=== PATIENT | male | born 1945 | race Caucasian/White ===

== ENCOUNTER 2024-08-31 17:54 | Emergency (ER) | payer MEDICARE, BC ==
[2024-08-31] MEDS: Succinylcholine 200 MG/10 ML MDV IVPUSH ONE (18:01)
[2024-08-31] MEDS: Etomidate 2 MG/ML 20 ML SDV IVPUSH ONE (18:01)
[2024-08-31] MEDS: Midazolam 1 MG/ML 5 ML SDV IVPUSH ONE (18:16)
[2024-08-31] MEDS: Rocuronium 50 MG/5 ML Vial IVPUSH ONE (18:17)
[2024-08-31 18:19] LABS: BASOPHILS PERCENT AUTO 0.4 % (0.0-1.0); EOSINOPHILS ABSOLUTE AUTO 0.2 K/mm3 (0.0-0.4); EOSINOPHILS PERCENT AUTO 1.7 % (0.0-6.0); HEMOGLOBIN 13.9 gm/dl (14.0-18.0); IMMATURE GRAN ABSOLUTE AUTO 0.05 K/mm3 (0.00-0.05); IMMATURE GRAN PERCENT AUTO 0.5 % (0.0-0.4); LYMPHOCYTES ABSOLUTE AUTO 2.6 K/mm3 (1.0-4.8); LYMPHOCYTES PERCENT AUTO 25.1 % (24.0-44.0); MEAN CORPUSCULAR HEMOGLOBIN 30.4 pg (28.0-32.0); MEAN CORPUSCULAR HGB CONC 30.2 g/dl (32.0-36.0); MEAN CORPUSCULAR VOLUME 100.7 fl (83.0-99.0); MEAN PLATELET VOLUME 10.1 fl (9.4-12.4); MONOCYTES ABSOLUTE AUTO 0.7 K/mm3 (0.0-0.8); MONOCYTES PERCENT AUTO 6.9 % (0.0-8.0); NEUTROPHILS ABSOLUTE AUTO 6.7 K/mm3 (1.8-7.7); NEUTROPHILS PERCENT AUTO 65.4 % (41.0-71.0); PLATELET COUNT,PLT 216 K/mm3 (150-400); RED BLOOD CELL COUNT 4.57 M/mm3 (4.52-5.90); WHITE BLOOD CELL COUNT,WBC 10.19 K/mm3 (3.9-11.3)
[2024-08-31] MEDS: Sodium Chloride 0.9% 1,000 ML IV ONE ×2 (18:30→19:29)
[2024-08-31 18:33] LABS: INR 1.13; PROTHROMBIN TIME 11.9 SECONDS (9.7-12.0)
[2024-08-31 18:34] LABS: APPEARANCE,URINE CLEAR (Clear); BILIRUBIN,URINE 1+ (Negative); COLOR,URINE YELLOW (Yellow); GLUCOSE,URINE NEGATIVE (Negative); KETONES,URINE TRACE (Negative); LEUKOCYTE ESTERASE,URINE NEGATIVE (Negative); NITRITE,URINE NEGATIVE (Negative); OCCULT BLOOD,URINE NEGATIVE (Negative); PH,URINE 5.5 (5.0-8.0); PROTEIN,URINE 3+ (Negative); UROBILINOGEN,URINE 0.2 (0.2-1.0)
[2024-08-31 18:34] LABS: PTT,PARTIAL THROMBOPLSTIN TIME 25.5 SECONDS (21.7-31.4)
[2024-08-31 18:40] LABS: A/G RATIO 0.6 (1-2); ALANINE AMINOTRANSFERASE,ALT 18 U/L (16-63); ALBUMIN 3.1 g/dl (3.4-5.0); ALKALINE PHOSPHATASE 151 U/L (46-116); ANION GAP 17.3 (5-15); BILIRUBIN TOTAL 0.5 mg/dL (0.2-1.0); BLOOD UREA NITROGEN,BUN 13 mg/dL (7-18); BUN/CREATININE RATIO 8.1 (14-18); CARBON DIOXIDE,CO2 26 mEq/L (21-32); CHLORIDE,CL 101 mEq/L (98-107); CREATININE 1.6 mg/dL (0.7-1.3); ESTIMATED GFR 44 mL/min (>60); GLUCOSE RANDOM 215 mg/dL (70-99); SODIUM,NA 140 mEq/L (136-145); TROPONIN I HIGH SENSITIVITY 27 pg/mL (<=76)
[2024-08-31 18:44] LABS: BARBITURATE SCREEN,URINE NEGATIVE (CUTOFF=200); BENZODIAZEPINES SCREEN,URINE NEGATIVE (CUTOFF=150); BUPRENORPHINE SCREEN,URINE NEGATIVE (CUTOFF=10); METHADONE SCREEN, URINE NEGATIVE (CUT0FF=200); METHAMPHETAMINES SCREEN, URINE NEGATIVE (CUTOFF=500); OXYCODONE SCREEN,URINE NEGATIVE (CUT0FF=100); THC SCREEN,URINE 20 NG/ML NEGATIVE (CUTOFF=50)
[2024-08-31 18:47] LABS: AMPHETAMINES SCREEN, URINE NEGATIVE (CUTOFF=500)
[2024-08-31 18:49] LABS: CALCIUM 8.8 mg/dL (8.5-10.1)
[2024-08-31 19:00] LABS: POTASSIUM,K 4.3 mEq/L (3.5-5.1)
[2024-08-31 19:01] LABS: ASPARTATE AMNIOTRANSFERASE,AST 35 U/L (15-37)
[2024-08-31] MEDS: methylPREDNISolone Sodium Succinate 125 MG/2 ML SDV IVPUSH ONE (19:04)
[2024-08-31] MEDS: propofoL 1,000 MG/100 ML 100 ML IV SCH (19:05)
[2024-08-31] MEDS: propofoL 1,000 MG/100 ML 100 ML ONE (19:09)
[2024-08-31 19:11] LABS: BASE EXCESS ARTERIAL -1.1 (-2-2.0); BICARBONATE,ARTERIAL 24.9 meq/L (22.0-26.0); O2 SATURATION ARTERIAL 98.5 % (96.0-97.0)
[2024-08-31] MEDS: Iopamidol 612 MG/ML 30 ML SDV IV ONE (19:27)
[2024-08-31] MEDS: Iopamidol 612 MG/ML 100 ML Bottle IVPUSH ONE (19:27)
[2024-08-31] MEDS: cefTRIAXone 2 GM in Sodium Chloride 0.9% 100 ML IV ONE (19:28)
[2024-08-31] MEDS: Sodium Chloride 0.9% 10 ML Syringe FLUSH PRN (20:35)
[2024-08-31] MEDS: Iopamidol 755 Mg/ML 100 ML Bottle IVPUSH ONE (20:35)
[2024-08-31] MEDS: Sodium Chloride 0.9% 45 ML IV SCH (20:35)
[2024-08-31] MEDS: Lactated Ringers 1,000 ML IV ONE (20:37)
[2024-08-31] MEDS ORDERED: Lactated Ringers 1,000 ML IV SCH (20:45)
== END 2024-08-31 22:39 ==
LOC: JD.ED 17:54
DX: A41.9 Sepsis, unspecified organism (principal); R65.21 Severe sepsis with septic shock; J18.9 Pneumonia, unspecified organism; J96.01 Acute respiratory failure with hypoxia; J90 Pleural effusion, not elsewhere classified; R11.10 Vomiting, unspecified
CPT/HCPCS: 31500; 36415; 36600; 51702; 70450; 70496; 70498; 71045; 71260; 74177; 80053; 80306; 80307; 81003; 82803; 82947; 83605; 84484; 85025; 85610; 85730; 87040; 87428; 93005; 96361; 96365; 96366; 96368; 96375; 99291; J0330; J0696; J2250; J2704; J2919; J3490; J7030; J7120; Q9967; 93010; 99292

== ENCOUNTER 2024-10-18 11:38 | Emergency (ER) | payer MEDICARE, BC ==
[2024-10-18] MEDS ORDERED: Sodium Chloride 0.9% 10 ML Syringe FLUSH PRN (12:29)
[2024-10-18] MEDS: Furosemide 20 MG/2 ML VIAL ONE (14:02)
[2024-10-18] MEDS: Furosemide 40 MG/4 ML VIAL IVPUSH ONE (14:02)
[2024-10-18 14:05] LABS: BASOPHILS PERCENT AUTO 0.3 % (0.0-1.0); EOSINOPHILS ABSOLUTE AUTO 0.1 K/mm3 (0.0-0.4); EOSINOPHILS PERCENT AUTO 1.5 % (0.0-6.0); HEMATOCRIT 39.2 % (42.0-52.0); IMMATURE GRAN ABSOLUTE AUTO 0.04 K/mm3 (0.00-0.05); IMMATURE GRAN PERCENT AUTO 0.6 % (0.0-0.4); LYMPHOCYTES ABSOLUTE AUTO 0.8 K/mm3 (1.0-4.8); LYMPHOCYTES PERCENT AUTO 11.1 % (24.0-44.0); MEAN CORPUSCULAR HEMOGLOBIN 30.1 pg (28.0-32.0); MEAN CORPUSCULAR HGB CONC 30.6 g/dl (32.0-36.0); MEAN CORPUSCULAR VOLUME 98.2 fl (83.0-99.0); MEAN PLATELET VOLUME 8.8 fl (9.4-12.4); MONOCYTES ABSOLUTE AUTO 0.5 K/mm3 (0.0-0.8); MONOCYTES PERCENT AUTO 7.2 % (0.0-8.0); NEUTROPHILS ABSOLUTE AUTO 5.4 K/mm3 (1.8-7.7); NEUTROPHILS PERCENT AUTO 79.3 % (41.0-71.0); PLATELET COUNT,PLT 220 K/mm3 (150-400); RED BLOOD CELL COUNT 3.99 M/mm3 (4.52-5.90); WHITE BLOOD CELL COUNT,WBC 6.82 K/mm3 (3.9-11.3)
[2024-10-18 14:30] LABS: A/G RATIO 0.7 (1-2); ALBUMIN 2.9 g/dl (3.4-5.0); ANION GAP 7.9 (5-15); BILIRUBIN TOTAL 0.7 mg/dL (0.2-1.0); C-REACTIVE PROTEIN 1.38 mg/dL (<0.30); CALCIUM 8.6 mg/dL (8.5-10.1); EST CRCL DRUG DOSING (CG) 59.9 mL/min; MAGNESIUM 1.8 mg/dL (1.8-2.4); POTASSIUM,K 3.9 mEq/L (3.5-5.1)
[2024-10-18 14:34] LABS: LACTIC ACID 0.7 mmol/L (0.4-2.0)
[2024-10-18] MEDS: Albuterol/Ipratropium 3.0-0.5 MG/3 ML Neb Soln NEB ONE (16:43)
[2024-10-18] MEDS: Lisinopril 20 MG Tab PO STA (17:39)
[2024-10-18] MEDS: Metoprolol Succinate 50 MG Tab.ER PO ONE (17:40)
[2024-10-18] MEDS: Potassium Chloride 20 MEQ Tab.ER PO ONE (17:40)
[2024-10-18] MEDS ORDERED: Potassium Chloride 10 MEQ Tab.ER PO SCH (19:45)
[2024-10-18] MEDS ORDERED: Pantoprazole 40 MG Tab.CR PO SCH (21:00)
[2024-10-18] MEDS ORDERED: Aspirin 81 MG Tab.Chew PO SCH (21:00)
[2024-10-19] MEDS: Furosemide 20 MG/2 ML VIAL IVPUSH ONE (01:31)
[2024-10-19] MEDS: Levothyroxine 50 MCG Tab PO SCH (06:37)
[2024-10-19 06:46] LABS: ANION GAP 11.6 (5-15); EST CRCL DRUG DOSING (CG) 59.9 mL/min; POTASSIUM,K 3.6 mEq/L (3.5-5.1)
[2024-10-19] MEDS: Pantoprazole 40 MG Tab.CR PO SCH (07:37)
== END 2024-10-19 08:03 | disposition home or self-care (01) ==
LOC: JD.ED 11:38
DX: I50.9 Heart failure, unspecified (principal); Z79.51 Long term (current) use of inhaled steroids; Z79.82 Long term (current) use of aspirin; Z79.890 Hormone replacement therapy; Z79.899 Other long term (current) drug therapy
CPT/HCPCS: 36415; 71045; 80048; 80053; 83605; 83735; 83880; 84484; 85025; 86140; 93005; 94640; 96374; 99285; A9270; J1940; J7620-GY

== ENCOUNTER 2025-07-17 11:18 | Emergency (ER) | payer MEDICARE, BC ==
[2025-07-17] MEDS ORDERED: Sodium Chloride 0.9% 10 ML Syringe FLUSH PRN (11:42)
[2025-07-17 12:45] LABS: BASOPHILS ABSOLUTE AUTO 0.1 K/mm3 (0.0-0.2); BASOPHILS PERCENT AUTO 0.6 % (0.0-1.0); EOSINOPHILS ABSOLUTE AUTO 0.4 K/mm3 (0.0-0.4); EOSINOPHILS PERCENT AUTO 4.1 % (0.0-6.0); IMMATURE GRAN ABSOLUTE AUTO 0.03 K/mm3 (0.00-0.05); IMMATURE GRAN PERCENT AUTO 0.3 % (0.0-0.4); LYMPHOCYTES ABSOLUTE AUTO 1.1 K/mm3 (1.0-4.8); LYMPHOCYTES PERCENT AUTO 11.8 % (24.0-44.0); MEAN PLATELET VOLUME 9.6 fl (9.4-12.4); MONOCYTES ABSOLUTE AUTO 0.7 K/mm3 (0.0-0.8); MONOCYTES PERCENT AUTO 7.1 % (0.0-8.0); NEUTROPHILS ABSOLUTE AUTO 7.3 K/mm3 (1.8-7.7); NEUTROPHILS PERCENT AUTO 76.1 % (41.0-71.0); NRBC ABSOLUTE 0.00 (0.00-0.02); NRBC PERCENT 0.0 % (0.0-0.2); PLATELET COUNT,PLT 248 K/mm3 (150-400); RED BLOOD CELL COUNT 4.83 M/mm3 (4.52-5.90); WHITE BLOOD CELL COUNT,WBC 9.57 K/mm3 (3.9-11.3)
[2025-07-17 13:22] LABS: A/G RATIO 0.6 (1-2); ALANINE AMINOTRANSFERASE,ALT 17.0 U/L (16-63); ASPARTATE AMNIOTRANSFERASE,AST 25.0 U/L (15-37); BILIRUBIN TOTAL 0.5 mg/dL (0.2-1.0); BLOOD UREA NITROGEN,BUN 21.0 mg/dL (7-18); CARBON DIOXIDE,CO2 33.0 mEq/L (21-32); CHLORIDE,CL 105.0 mEq/L (98-107); CREATININE 1.6 mg/dL (0.7-1.3); EST CRCL DRUG DOSING (CG) 38.02 mL/min; ESTIMATED GFR 43.0 mL/min (>60); GLUCOSE RANDOM 91.0 mg/dL (70-99); PROTEIN TOTAL,TP 8.1 g/dl (6.4-8.2); SODIUM,NA 143.0 mEq/L (136-145); TROPONIN I HIGH SENSITIVITY 16.0 pg/mL (<=76)
[2025-07-17 13:23] LABS: POTASSIUM,K 5.4 mEq/L (3.5-5.1)
== END 2025-07-17 14:02 | disposition home or self-care (01) ==
LOC: JD.ED 11:18
DX: J96.11 Chronic respiratory failure with hypoxia (principal); I27.20 Pulmonary hypertension, unspecified; E87.5 Hyperkalemia; I11.0 Hypertensive heart disease with heart failure; I50.9 Heart failure, unspecified; Z99.81 Dependence on supplemental oxygen
CPT/HCPCS: 36415; 71046; 71046-26; 80053; 83880; 84484; 85025; 86140; 93005; 93010; 99283; 99284